=== PATIENT | male | born 1990 | race Caucasian/White ===

== ENCOUNTER 2024-03-11 11:35 | Inpatient (IN) ==
[~2024-03-11 11:35] MED LIST: ACETYLCYSTEINE IV ONE; D5W IV ONE
[2024-03-11] MEDS ORDERED: Lorazepam PYXIS KEY PRN (14:23)
[2024-03-11] MEDS: LORazepam 2 mg VIAL 1 ml IV PUSH SCH ×2 (14:39→15:42)
[2024-03-11] MEDS: Multivitamins/Minerals TAB PO SCH (14:39)
[2024-03-11] MEDS: Thiamine 100 MG/ML 2 ml VIAL (200 mg) IM ONE (15:32)
[2024-03-11 15:37] LABS: INR 1.58 (0.85-1.14)
[2024-03-11 15:41] LABS: Hematocrit 31.8 % (38-53); Hemoglobin 11.5 g/dL (13.2-16.3); Mean Corpuscular Hemoglobin 37.3 pg (27-33); Mean Corpuscular Hgb Conc 36.2 g/dL (31-36); Mean Corpuscular Volume 102.9 fL (80-97); Mean Platelet Volume 9.7 fL (7.5-11.2); Platelet Count 53 10^3/uL (150-450); Red Blood Count 3.08 10^6/uL (4.06-5.63); Red Cell Distribution Width 16.3 % (12-17); White Blood Count 9.3 10^3/uL (3.6-10.2)
[2024-03-11 16:01] LABS: ALT 20 U/L (7-52); Albumin 2.6 g/dL (3.2-5.2); Albumin/Globulin Ratio 0.7 (1-3); Alcohol, S 264 mg/dL (<13); Alkaline Phosphatase 431 U/L (35-149); Amylase 53 U/L (29-103); Blood Urea Nitrogen 4 mg/dL (6-24); CO2 Carbon Dioxide 33 mmol/L (22-32); Calcium 7.2 mg/dL (8.6-10.3); Chloride 88 mmol/L (101-111); Creatinine, Serum 0.43 mg/dL (0.67-1.17); Globulin 3.6 g/dL (2-4); Glucose 99 mg/dL (70-100); Lipase 111 U/L (11.0-82.0); Sodium 132 mmol/L (135-145); Total Protein 6.2 g/dL (6.4-8.9); eGFR CKD-EPI 146.4 (>60)
[2024-03-11 16:02] LABS: Anion Gap 11 mmol/L (2-16); Total Bilirubin 17.3 mg/dL (0.2-1.0)
[2024-03-11 16:32] LABS: Folate 3.69 ng/mL (5.90-24.80); Vitamin B12 > 1450 pg/mL (180-914)
[2024-03-11 16:36] LABS: Urine Bacteria No Culture Absent /HPF (Absent); Urine Bilirubin No Culture 4+ (Negative); Urine Blood No Culture 3+ (Negative); Urine Glucose No Culture Negative (Negative); Urine Ketones No Culture Negative (Negative); Urine Leukocytes No Culture Negative Leu/uL (Negative); Urine Nitrite No Culture Negative (Negative); Urine Protein No Culture Trace (Negative); Urine Red Blood Cell No Cult 3+(>10/hpf) /HPF (0-Trace); Urine Urobilinogen No Cx 1+ (Negative); Urine White Blood Cell No Cult Absent /HPF (0-Trace)
[2024-03-11 16:39] LABS: ABS Basophils 0.1 10^3/uL (0.0-0.1); ABS Lymphocytes 1.6 10^3/uL (1.0-4.8); ABS Monocytes 0.5 10^3/uL (0.0-1.1); ABS Neutrophils 6.9 10^3/uL (1.5-7.6); ABS Nucleated RBC 0.02 10^3/ul; Eosinophil % 0.5 %; Lymphocyte % 17.5 %; Nucleated Red Blood Cells % 0.2 %/100WBC (0.0-0.8)
[2024-03-11 16:40] LABS: Basophilic Stippling 1+; Macrocytosis 1+; Target Cells 1+
[2024-03-11 16:46] LABS: Urine Color No Culture Brown
[2024-03-11 16:50] LABS: Hepatitis B Surface Antigen Nonreactive (Nonreactive)
[2024-03-11 16:55] LABS: Magnesium 1.9 mg/dL (1.9-2.7)
[2024-03-11 17:08] LABS: Hepatitis C Antibody Negative (Negative)
[2024-03-11 18:06] LABS: Immature Retic Fraction 0.44
[2024-03-11 18:27] LABS: RBC Retic Count 3.08 10^6/ul (4.06-5.63)
[2024-03-11 18:28] LABS: Corrected Retic Count 1.3 % (0.5-2.2); Hematocrit for Retic CNT 31.8 % (38-53)
[2024-03-11 18:39] LABS: Potassium, Whole Blood 2.8 mmol/L (3.4-4.5)
[2024-03-11 18:48] LABS: Total Bilirubin 17.9 mg/dL (0.2-1.0)
[2024-03-11] MEDS: KCL 20 MEQ/100 ML IVPREMIX 20 MEQ/100 ML BAG IV SCH (19:30)
[2024-03-11] MEDS: Enoxaparin 40 MG/0.4 ML SYR SUBCUT SCH (20:08)
[2024-03-11 20:14] LABS: Direct Bilirubin Redraw 9.3 mg/dL (0.1-0.5)
[2024-03-11] MEDS: cefTRIAXone 2 gm/50 mL D5W 2 GM/50 ML BAG IV SCH (23:07)
[2024-03-11] MEDS: D5W IV ONE (23:54)
[2024-03-11] MEDS: ACETYLCYSTEINE IV ONE (23:54)
[2024-03-12 00:38] LABS: Body Fluid Source Peritonial Fluid
[2024-03-12 00:39] LABS: Body Fluid Appearance Cloudy; Body Fluid Color Amber
[2024-03-12] MEDS: Iohexol 350 (CONTRAST) 500 ML MDV IV ONE (01:05)
[2024-03-12] MEDS: D5W IV ONE ×2 (02:00→07:47)
[2024-03-12] MEDS: ACETYLCYSTEINE IV ONE ×2 (02:00→07:47)
[2024-03-12 04:32] LABS: Body Fluid Mono 8 %
[2024-03-12 04:33] LABS: Body Fluid Total Cells Counted 200
[2024-03-12 04:34] LABS: Body Fluid Other Cells 47
[2024-03-12 05:12] LABS: Venous Bicarbonate HCO3 33.1 mmol/L (24-28)
[2024-03-12 05:29] LABS: Hematocrit 29.3 % (38-53); Hemoglobin 10.6 g/dL (13.2-16.3); Mean Corpuscular Hemoglobin 37.5 pg (27-33); Mean Corpuscular Hgb Conc 36.3 g/dL (31-36); Mean Corpuscular Volume 103.3 fL (80-97); Mean Platelet Volume 9.5 fL (7.5-11.2); Platelet Count 49 10^3/uL (150-450); Red Blood Count 2.84 10^6/uL (4.06-5.63); Red Cell Distribution Width 16.5 % (12-17); White Blood Count 7.8 10^3/uL (3.6-10.2)
[2024-03-12 05:32] LABS: INR 1.83 (0.85-1.14)
[2024-03-12 06:01] LABS: Calcium 7.5 mg/dL (8.6-10.3); Creatinine, Serum 0.44 mg/dL (0.67-1.17); Potassium 3.3 mmol/L (3.5-5.0); eGFR CKD-EPI 145.4 (>60)
[2024-03-12 06:04] LABS: Albumin 2.6 g/dL (3.2-5.2); Albumin/Globulin Ratio 0.8 (1-3); Globulin 3.4 g/dL (2-4); Magnesium 1.6 mg/dL (1.9-2.7); Total Bilirubin 18.7 mg/dL (0.2-1.0)
[2024-03-12] MEDS ORDERED: diazePAM INJ CARPUJECT 5 MG/ML SYRINGE IV ONE (06:17)
[2024-03-12] MEDS ORDERED: diazePAM INJ CARPUJECT 5 MG/ML SYRINGE IV PRN (06:18)
[2024-03-12] MEDS: diazePAM INJ CARPUJECT 5 MG/ML SYRINGE IV SCH (06:28)
[2024-03-12] MEDS: diazePAM INJ CARPUJECT 5 MG/ML SYRINGE ONE (06:42)
[2024-03-12 06:45] LABS: ABS Lymphocytes 0.6 10^3/uL (1.0-4.8); ABS Monocytes 0.4 10^3/uL (0.0-1.1); ABS Neutrophils 6.6 10^3/uL (1.5-7.6); ABS Nucleated RBC 0.02 10^3/ul; Lymphocyte % 7.8 %; Nucleated Red Blood Cells % 0.2 %/100WBC (0.0-0.8)
[2024-03-12] MEDS: Magnesium Sulf 4 GM/100 ML IV 4,000 MG/100 ML BAG IVPB ONE (08:35)
[2024-03-12] MEDS: Ondansetron 4 mg VIAL 2 MG/ML 2 ml VIAL IV PRN (09:25)
[2024-03-12] MEDS: KCL 20 MEQ/100 ML IVPREMIX 20 MEQ/100 ML BAG IV SCH (10:19)
[2024-03-12] MEDS: Lactulose 30 ml UDC PO SCH (12:24)
[2024-03-13] MEDS: D5W IV SCH (00:35)
[2024-03-13] MEDS: ACETYLCYSTEINE IV SCH (00:35)
[2024-03-13 05:22] LABS: INR 1.83 (0.85-1.14)
[2024-03-13 06:15] LABS: Anion Gap 4 mmol/L (2-16); Blood Urea Nitrogen 5 mg/dL (6-24); CO2 Carbon Dioxide 33 mmol/L (22-32); Calcium 7.8 mg/dL (8.6-10.3); Chloride 92 mmol/L (101-111); Creatinine, Serum 0.46 mg/dL (0.67-1.17); Glucose 98 mg/dL (70-100); Potassium 3.2 mmol/L (3.5-5.0); Sodium 129 mmol/L (135-145); eGFR CKD-EPI 143.4 (>60)
[2024-03-13 06:20] LABS: ALT 17 U/L (7-52); AST 252 U/L (13-39); Albumin 2.7 g/dL (3.5-5.7); Albumin/Globulin Ratio 0.8 (1-3); Alkaline Phosphatase 348 U/L (35-149); Globulin 3.5 g/dL (2-4); Total Bilirubin 23.1 mg/dL (0.2-1.0); Total Protein 6.2 g/dL (6.4-8.9)
[2024-03-13 06:23] LABS: Basophilic Stippling 1+; Hematocrit 28.1 % (38-53); Hemoglobin 10.2 g/dL (13.2-16.3); Macrocytosis 1+; Mean Corpuscular Hemoglobin 37.7 pg (27-33); Mean Corpuscular Hgb Conc 36.2 g/dL (31-36); Mean Corpuscular Volume 104.1 fL (80-97); Mean Platelet Volume 10.5 fL (7.5-11.2); Platelet Count 55 10^3/uL (150-450); Red Blood Count 2.69 10^6/uL (4.06-5.63); Red Cell Distribution Width 16.8 % (12-17); White Blood Count 9.1 10^3/uL (3.6-10.2)
[2024-03-13] MEDS: Magnesium Sulfate 2 gm BAG 2 GM/50 ML BAG IVPB ONE (06:31)
[2024-03-13] MEDS: KCL 20 MEQ/100 ML IVPREMIX 20 MEQ/100 ML BAG IV SCH (06:34)
[2024-03-13 06:39] LABS: Phosphorus 1.1 mg/dL (2.5-5.0)
[2024-03-13] MEDS: Potassium Acid Phos 500 mg TAB PO SCH (08:55)
[2024-03-13 09:30] LABS: Body Fluid Total Nucleated 46 /mcL
[2024-03-13] MEDS: diazePAM INJ CARPUJECT 5 MG/ML SYRINGE IV SCH (12:05)
[2024-03-13 13:10] LABS: Lactate Dehydrogenase, BF 99 U/L
[2024-03-13] MEDS: Enoxaparin 40 MG/0.4 ML SYR SUBCUT SCH (21:27)
[2024-03-14 05:10] LABS: Hematocrit 29.7 % (38-53); Hemoglobin 10.5 g/dL (13.2-16.3); Mean Corpuscular Hemoglobin 36.9 pg (27-33); Mean Corpuscular Hgb Conc 35.5 g/dL (31-36); Mean Corpuscular Volume 103.9 fL (80-97); Mean Platelet Volume 10.3 fL (7.5-11.2); Platelet Count 70 10^3/uL (150-450); Red Blood Count 2.86 10^6/uL (4.06-5.63); White Blood Count 9.2 10^3/uL (3.6-10.2)
[2024-03-14 05:42] LABS: ABS Basophils 0.1 10^3/uL (0.0-0.1); ABS Monocytes 0.8 10^3/uL (0.0-1.1); ABS Neutrophils 6.4 10^3/uL (1.5-7.6); ABS Nucleated RBC 0.02 10^3/ul; Eosinophil % 0.5 %; Lymphocyte % 21.1 %; Nucleated Red Blood Cells % 0.2 %/100WBC (0.0-0.8)
[2024-03-14 05:44] LABS: Calcium 7.7 mg/dL (8.6-10.3); Creatinine, Serum 0.63 mg/dL (0.67-1.17); Potassium 3.1 mmol/L (3.5-5.0); eGFR CKD-EPI 130.4 (>60)
[2024-03-14 05:59] LABS: Albumin 2.6 g/dL (3.5-5.7); Albumin/Globulin Ratio 0.8 (1-3); Globulin 3.4 g/dL (2-4); Magnesium 2.1 mg/dL (1.9-2.7); Phosphorus 1.2 mg/dL (2.5-5.0); Total Bilirubin 24.6 mg/dL (0.2-1.0)
[2024-03-14] MEDS: Potassium Phosphate IV 15 MMOL in NS 0.9% 250 ml 250 ML IVPB ONE (06:33)
[2024-03-14 08:45] LABS: INR 2.01 (0.85-1.14)
[2024-03-14] MEDS: KCL 20 MEQ/100 ML IVPREMIX 20 MEQ/100 ML BAG IV SCH (10:19)
[2024-03-14 11:27] LABS: Fluid Type, Protein, Total PERITONEAL FLUID; Glucose, BF 127 mg/dL; Total Protein, BF 1.5 g/dL
[2024-03-14 15:32] LABS: Rapid COVID-19 Molecular Undetected (Undetected)
[2024-03-15 07:09] LABS: Hematocrit 28.5 % (38-53); Hemoglobin 10.2 g/dL (13.2-16.3); Mean Corpuscular Hemoglobin 37.5 pg (27-33); Mean Corpuscular Hgb Conc 35.9 g/dL (31-36); Mean Corpuscular Volume 104.3 fL (80-97); Mean Platelet Volume 9.9 fL (7.5-11.2); Platelet Count 96 10^3/uL (150-450); Red Blood Count 2.73 10^6/uL (4.06-5.63); White Blood Count 10.5 10^3/uL (3.6-10.2)
[2024-03-15 07:31] LABS: Calcium 7.8 mg/dL (8.6-10.3); Creatinine, Serum 0.59 mg/dL (0.67-1.17); Potassium 3.8 mmol/L (3.5-5.0)
[2024-03-15 07:46] LABS: Albumin 2.4 g/dL (3.5-5.7); Albumin/Globulin Ratio 0.8 (1-3); Globulin 3.2 g/dL (2-4); Magnesium 1.8 mg/dL (1.9-2.7); Total Bilirubin 23.7 mg/dL (0.2-1.0); Total Protein 5.6 g/dL (6.4-8.9)
[2024-03-15 08:24] LABS: INR 2.21 (0.85-1.14)
[2024-03-15] MEDS: Magnesium Sulfate 2 gm BAG 2 GM/50 ML BAG IVPB ONE (09:00)
[2024-03-15 09:10] LABS: ABS Lymphocytes 1.7 10^3/uL (1.0-4.8); ABS Neutrophils 7.7 10^3/uL (1.5-7.6); ABS Nucleated RBC 0.01 10^3/ul; Eosinophil % 0.1 %; Lymphocyte % 16.5 %; Nucleated Red Blood Cells % 0.1 %/100WBC (0.0-0.8)
[2024-03-15] MEDS ORDERED: LORazepam 2 mg VIAL 1 ml IV PUSH PRN (10:04)
[2024-03-15] MEDS ORDERED: Lorazepam PYXIS KEY PRN (10:04)
[2024-03-15] MEDS: Phytonadione Oral Solution 5 MG/25 ML UDC PO ONE (12:16)
[2024-03-16 07:33] LABS: Anion Gap 9 mmol/L (2-16); Blood Urea Nitrogen 8 mg/dL (6-24); CO2 Carbon Dioxide 28 mmol/L (22-32); Calcium 7.9 mg/dL (8.6-10.3); Chloride 91 mmol/L (101-111); Creatinine, Serum 0.61 mg/dL (0.67-1.17); Glucose 63 mg/dL (70-100); Magnesium 1.9 mg/dL (1.9-2.7); Sodium 128 mmol/L (135-145); eGFR CKD-EPI 131.7 (>60)
[2024-03-16 07:51] LABS: Potassium, Whole Blood 3.3 mmol/L (3.4-4.5)
[2024-03-16 08:18] LABS: ABS Basophils 0.2 10^3/uL (0.0-0.1); ABS Eosinophils 0.1 10^3/uL (0.0-0.5); ABS Lymphocytes 2.7 10^3/uL (1.0-4.8); ABS Neutrophils 7.9 10^3/uL (1.5-7.6); ABS Nucleated RBC 0.01 10^3/ul; Eosinophil % 0.4 %; Hematocrit 30.2 % (38-53); Hemoglobin 10.7 g/dL (13.2-16.3); Lymphocyte % 22.8 %; Mean Corpuscular Hemoglobin 37.3 pg (27-33); Mean Corpuscular Hgb Conc 35.5 g/dL (31-36); Mean Corpuscular Volume 105.2 fL (80-97); Mean Platelet Volume 9.7 fL (7.5-11.2); Nucleated Red Blood Cells % 0.1 %/100WBC (0.0-0.8); Platelet Count 131 10^3/uL (150-450); Red Blood Count 2.87 10^6/uL (4.06-5.63); Red Cell Distribution Width 18.1 % (12-17); White Blood Count 11.8 10^3/uL (3.6-10.2)
[2024-03-16 08:19] LABS: Anisocytosis 1+; Basophilic Stippling 1+; Macrocytosis 1+
[2024-03-16 08:51] LABS: ALT 18 U/L (7-52); AST 145 U/L (13-39); Alkaline Phosphatase 302 U/L (35-149); Total Bilirubin 24.6 mg/dL (0.2-1.0)
[2024-03-16] MEDS: Potassium Chlor 20 meq TAB.ER PO ONE (10:32)
[2024-03-16 10:41] LABS: INR 1.96 (0.85-1.14)
[2024-03-16] MEDS: Magnesium Sulfate 2 gm BAG 2 GM/50 ML BAG IVPB ONE (11:17)
[2024-03-16] MEDS: Lactated Ringers 1000 ml BAG 1,000 ML IV SCH (11:17)
[2024-03-16] MEDS: Phytonadione Oral Solution 5 MG/25 ML UDC PO ONE (17:16)
[2024-03-17 06:29] LABS: Hemoglobin 10.1 g/dL (13.2-16.3); Mean Corpuscular Hemoglobin 37.8 pg (27-33); Mean Corpuscular Volume 105.1 fL (80-97); Mean Platelet Volume 9.2 fL (7.5-11.2); Platelet Count 142 10^3/uL (150-450); Red Blood Count 2.67 10^6/uL (4.06-5.63); White Blood Count 11.4 10^3/uL (3.6-10.2)
[2024-03-17 06:50] LABS: Calcium 7.9 mg/dL (8.6-10.3); Creatinine, Serum 0.63 mg/dL (0.67-1.17); Potassium 3.7 mmol/L (3.5-5.0); eGFR CKD-EPI 130.4 (>60)
[2024-03-17 06:54] LABS: Albumin 2.6 g/dL (3.5-5.7); Albumin/Globulin Ratio 0.9 (1-3); Globulin 2.8 g/dL (2-4); Magnesium 2.1 mg/dL (1.9-2.7); Total Bilirubin 22.6 mg/dL (0.2-1.0); Total Protein 5.4 g/dL (6.4-8.9)
[2024-03-17 07:24] LABS: ABS Lymphocytes 2.4 10^3/uL (1.0-4.8); ABS Monocytes 1.4 10^3/uL (0.0-1.1); ABS Neutrophils 7.5 10^3/uL (1.5-7.6); ABS Nucleated RBC 0.02 10^3/ul; Eosinophil % 0.3 %; Lymphocyte % 21.1 %; Nucleated Red Blood Cells % 0.1 %/100WBC (0.0-0.8)
[2024-03-17 08:43] LABS: INR 1.88 (0.85-1.14)
[2024-03-17] MEDS: Potassium Chlor 20 meq TAB.ER PO ONE (13:29)
[2024-03-17] MEDS: Phytonadione Oral Solution 5 MG/25 ML UDC PO ONE (16:03)
[2024-03-18 06:19] LABS: INR 1.9 (0.85-1.14)
[2024-03-18 06:24] LABS: Hematocrit 29.9 % (38-53); Hemoglobin 10.6 g/dL (13.2-16.3); Mean Corpuscular Hemoglobin 37.8 pg (27-33); Mean Corpuscular Hgb Conc 35.6 g/dL (31-36); Mean Corpuscular Volume 106.1 fL (80-97); Mean Platelet Volume 9.6 fL (7.5-11.2); Platelet Count 169 10^3/uL (150-450); Red Blood Count 2.82 10^6/uL (4.06-5.63)
[2024-03-18 06:30] LABS: Calcium 7.7 mg/dL (8.6-10.3); Creatinine, Serum 0.61 mg/dL (0.67-1.17); Magnesium 1.9 mg/dL (1.9-2.7); Potassium 3.5 mmol/L (3.5-5.0); eGFR CKD-EPI 131.7 (>60)
[2024-03-18 07:33] LABS: ABS Basophils 0.1 10^3/uL (0.0-0.1); ABS Lymphocytes 2.4 10^3/uL (1.0-4.8); ABS Monocytes 1.5 10^3/uL (0.0-1.1); ABS Nucleated RBC 0.01 10^3/ul; Anisocytosis 2+; Eosinophil % 0.4 %; Lymphocyte % 21.8 %; Macrocytosis 1+; Nucleated Red Blood Cells % 0.1 %/100WBC (0.0-0.8); Polychromasia 1+; Target Cells 1+
[2024-03-18] MEDS: Potassium Chlor 20 meq TAB.ER PO ONE (07:51)
[2024-03-18 08:33] LABS: Albumin 2.5 g/dL (3.5-5.7); Albumin/Globulin Ratio 0.8 (1-3); Total Bilirubin 21.6 mg/dL (0.2-1.0); Total Protein 5.5 g/dL (6.4-8.9)
[2024-03-18 08:38] LABS: Direct Bilirubin 13.6 mg/dL (0.03-0.18)
[2024-03-18] MEDS: Lactated Ringers 1000 ml BAG 1,000 ML IV SCH (09:38)
[2024-03-18] MEDS: Phytonadione Oral Solution 5 MG/25 ML UDC PO ONE (15:31)
[2024-03-19 06:43] LABS: INR 1.84 (0.85-1.14)
[2024-03-19 06:47] LABS: Hematocrit 27.9 % (38-53); Hemoglobin 9.5 g/dL (13.2-16.3); Mean Corpuscular Hemoglobin 36.1 pg (27-33); Mean Corpuscular Volume 106.3 fL (80-97); Mean Platelet Volume 9.1 fL (7.5-11.2); Platelet Count 220 10^3/uL (150-450); Red Blood Count 2.63 10^6/uL (4.06-5.63); Red Cell Distribution Width 18.1 % (12-17); White Blood Count 11.3 10^3/uL (3.6-10.2)
[2024-03-19 07:01] LABS: Creatinine, Serum 0.6 mg/dL (0.67-1.17); Potassium 3.7 mmol/L (3.5-5.0); eGFR CKD-EPI 132.4 (>60)
[2024-03-19 07:04] LABS: Albumin 2.5 g/dL (3.5-5.7); Albumin/Globulin Ratio 0.9 (1-3); Globulin 2.9 g/dL (2-4); Total Protein 5.4 g/dL (6.4-8.9)
[2024-03-19 08:04] LABS: Magnesium 1.8 mg/dL (1.9-2.7)
[2024-03-20 07:02] LABS: Calcium 7.9 mg/dL (8.6-10.3); Creatinine, Serum 0.53 mg/dL (0.67-1.17); Potassium 3.6 mmol/L (3.5-5.0); eGFR CKD-EPI 137.4 (>60)
[2024-03-20 07:06] LABS: Albumin 2.5 g/dL (3.5-5.7); Albumin/Globulin Ratio 0.9 (1-3); Globulin 2.9 g/dL (2-4); Total Bilirubin 19.4 mg/dL (0.2-1.0); Total Protein 5.4 g/dL (6.4-8.9)
[2024-03-20 07:15] LABS: Hematocrit 28.4 % (38-53); Hemoglobin 9.9 g/dL (13.2-16.3); Mean Corpuscular Hemoglobin 37.4 pg (27-33); Mean Corpuscular Hgb Conc 34.9 g/dL (31-36); Mean Corpuscular Volume 107.2 fL (80-97); Mean Platelet Volume 9.3 fL (7.5-11.2); Platelet Count 263 10^3/uL (150-450); Red Blood Count 2.65 10^6/uL (4.06-5.63); Red Cell Distribution Width 18.4 % (12-17); White Blood Count 12.9 10^3/uL (3.6-10.2)
[2024-03-20] MEDS: Magnesium Sulfate 2 gm BAG 2 GM/50 ML BAG IVPB ONE (08:15)
[2024-03-20 09:44] VITALS: BP 122/83
[2024-03-20 10:06] LABS: INR 1.5 (0.85-1.14)
== END 2024-03-20 11:56 | disposition home or self-care (01) | DRG 442 ==
LOC: SUATTDRO 14:05 → ICU 14:05 → MED 03-14 21:00
PROVIDERS: ADMIT Internal Medicine Critical Care Medicine; ATTEND Student in an Organized Health Care Education/Training Program